=== PATIENT | female | born 1985 | race Caucasian/White ===

== ENCOUNTER 2021-12-08 20:57 | Emergency (ER) | payer OTHER ==
[~2021-12-08] VITALS: Ht 157.5 cm; Wt 88.6 kg
[2021-12-08 20:57] VITALS: BP 135/79
[~2021-12-08 20:57] MED LIST: IBUP-1114 PO; MAPA500T2 PO; PRENTAB9 PO
== END 2021-12-08 22:54 | disposition left against medical advice (07) ==
LOC: M ED 20:57
DX: Z53.21 Procedure and treatment not carried out due to patient leaving prior to being seen by health care provider (principal)